=== PATIENT | male | born 1985 | race Two or more races ===

== ENCOUNTER 2020-07-04 09:45 | Emergency (ER) | payer MEDICAID, SELFPAY ==
[2020-07-04 10:01] VITALS: BP 150/98; PULSE 120; RESP 18; TEMP 36.7; O2SAT 99; BMI 28.7
--- NOTE | 2020-07-04 10:14 | ED.DENTAL ---
HPI - Dental/Oral General Chief complaint: Dental/Oral Stated complaint: mouth pain Time Seen by Provider: 07/04/20 10:02 Source: patient Mode of arrival: ambulatory Limitations: no limitations History of Present Illness HPI Narrative: Patient came for evaluation of bad teeth and chronic mouth pain. Patient stated ?I always have bad teeth I need them to be fixed?patient do not have insurance but willing to pay out of pocket. Patient do not have primary doctor. Related Data Previous Rx's Medication Instructions Recorded amoxicillin 500 mg PO BID #14 tab 07/04/20 Allergies Allergy/AdvReac Type Severity Reaction Status Date / Time No Known Allergies Allergy Unverified 12/31/19 15:49 Review of Systems Review of Systems: All other systems are reviewed and are negative Constitutional: Reports as per HPI and Reports no additional constitutional complaints Eyes: Reports as per HPI and Reports no additional eye complaints Reports system reviewed and no additional complaints, except as documented Cardiovascular: Reports as per HPI and Reports no additional cardiovascular complaints Respiratory: Reports as per HPI and Reports no additional respiratory complaints Gastrointestinal: Reports as per HPI and Reports no additional gastrointestinal complaints Genitourinary: Reports no additional female genitourinary complaints Musculoskeletal: Reports no additional musculoskeletal complaints Skin/Breast: Reports system reviewed and no additional complaints, except as docu Psychiatric: Reports no additional psychiatric complaints Endocrine: Reports no additional endocrine complaints Hematologic/Lymphatic: Reports no additional hematologic/lymphatic complaints Allergic/Immunologic: Reports no additional allergic/immunologic complaints Reports system reviewed and no additional complaints, except as documented and Reports Abnormal speech present PMFSH Past Medical History Medical History No known health problems Social History Social History Advance Directives: No Advance Directives Information Provided: No Physical Exam Vital Signs: Vital Signs: Last Vital Signs Temp 98.1 F 07/04/20 10:01 Pulse 120 H 07/04/20 10:01 Resp 18 07/04/20 10:01 BP 150/98 H 07/04/20 10:01 Pulse Ox 99 07/04/20 10:01 Body Mass Index 28.7 Vital signs have been reviewed as appeared to be correct. Blood pressure in the high range. Tachycardia thought to be secondary to anxiety. Respiration rate normal. Temperature normal. Oxygen saturation normal. Appearance: Alert. Oriented X3. No acute distress. Head: Normal external exam. Normocephalic. Atraumatic. No Mcintyre signs noted. No raccoon eyes noted Eyes: PERRLA. EOMI. Conjunctiva and sclera normal. Eyelids normal. ENT: TM's Normal. Pharynx normal. Uvula midline. Moist mucous membranes. No trismus noted. No drooling noted. No muffled voice noted. Neck: Normal inspection. Neck supple. FROM. No adenopathy. Thyroid Normal. No meningeal signs. No neck mass noted. CVS: Normal heart rate and rhythm. Heart sound normal. No murmurs noted. Pulses normal throughout. Respiratory: No respiratory distress. Painless inspiration. Breath sounds normal. No wheezes/rales/rhonchi noted. Chest nontender. No accessory muscle usage noted or decreased air movement noted. Abdomen: Soft and nontender. Bowel sounds normal in all 4 quadrants. No distention noted. No organomegaly noted. No visible injury noted. Back: No CVA tenderness. Full range of motion noted. Skin: Skin warm and dry. Normal skin color. Normal skin turgor. No rashes/lesions/lacerations noted. Extremities: No lower extremity edema. Extremities exhibit normal range of motion. Extremities nontender. Neuro: Oriented X 3. No motor deficit. No sensory deficit. Reflexes normal. HENMT: Teeth and gingiva: caries (Diffusely), gingiva abnormal diffusely erythematous and tender and other (Multiple missing teeth) Course Course Course Narrative: Assessment and plan. 34-year-old male who has no PCP/dentist due to lack of health insurance. Patient found to be tachycardic so to be secondary to patient's anxiety, also hypertensive could be secondary of pain in the emergency department ?patient does not like doctors or being in the emergency department ?. Will start the patient on amoxicillin and patient was instructed to walk into [facility]. Call [facility] for PCP. Discharge Plan Discharge Clinical Impression: Toothache, Dental caries Patient Disposition: Home, Self-Care Instructions: Mouth Care (ED) Prescriptions: New amoxicillin 500 mg tablet 500 mg PO BID Qty: 14 RF: 0 Referrals: [facility] Primary Jairon Mcfarland [Provider Group] - 2 days
[2020-07-04 10:37] VITALS: BP 124/72; PULSE 111; O2SAT 98
== END 2020-07-04 10:48 | disposition home or self-care (01) ==
PROVIDERS: Emergency Provider Emergency Medicine
DX: K08.89 Other specified disorders of teeth and supporting structures (principal); K02.9 Dental caries, unspecified; R00.0 Tachycardia, unspecified; F41.9 Anxiety disorder, unspecified; I10 Essential (primary) hypertension
CPT/HCPCS: 99283